=== PATIENT | male | born 1955 | race Caucasian/White ===

== ENCOUNTER 2023-07-06 14:39 | Outpatient (AMB) | payer MEDICARE, OTHER, SELFPAY ==
[2023-07-06 14:58] VITALS: BP 140/90; PULSE 57; O2SAT 98; BMI 27.9
--- NOTE | 2023-07-06 14:58 | HO.NEPHOV_ITS ---
Vital Signs 07/06/23 14:58 Height 5 ft 9 in Weight 189 lb 2 oz BMI 27.9 BP 140/90 H Blood Pressure Location Lt brachial Position Sitting Pulse 57 Pulse Source Pulse Oximeter Pulse Oximetry (%) 98 Oxygen Delivery Method Room Air Intake Visit Reasons: Hypertension/ Confirmed Ice Skating Instructor Required: No Accompanied by: Self / Same As Patient Allergies No Known Allergies Allergy (Verified 07/06/23 14:59) HPI Comments Details: I had the pleasure of seeing Hernán in follow-up of his labile hypertension. He continues to have fluctuant blood pressures without any symptoms. He does not have any palpitation, flushing, syncope, chest pain, shortness of breath, pedal edema, orthostatic symptoms. He has not taking any medications. He does not take any excessive nonsteroidal anti-inflammatories or excess sodium in the diet. He has no history of any drug use in the past. He denies any coronary artery disease, congestive heart failure, CVA, carotid stenosis, peripheral arterial disease or renal artery stenosis. He has no history of hypokalemia, hypercalcemia, uncontrolled thyroid disorders or documented sleep apnea. He maintains good hydration. [facility] Medical History (Updated 07/06/23 @ 15:35 by Sebas Lockhart MD) Hypertension Surgical History (Updated 07/06/23 @ 15:00 by Adilene Ugarte MA) History of hip replacement Family History (Updated 07/06/23 @ 15:01 by Adilene Ugarte MA) Brother Hypertension Social History (Updated 07/06/23 @ 15:01 by Adilene Ugarte MA) Alcohol intake: former Patient Tobacco Use Status: Never used Tobacco Physical Exam Vital Signs: Last Vital Signs Pulse 57 07/06/23 14:58 BP 140/90 H 07/06/23 14:58 Pulse Ox 98 07/06/23 14:58 Oxygen Delivery Method Room Air 07/06/23 14:58 BMI result Body Mass Index 27.9 Const General: comfortable and no acute distress Orientation/consciousness: patient oriented x3 HEENT Head: Yes normocephalic Mouth: Normal oral and palatal mucosa present Eyes EOM: EOMs intact bilaterally Neck Neck: Yes supple Resp Auscultation: clear to auscultation bilaterally Cardio Jugular venous distension: no JVD Rate: regular rate GI Palpation (GI): Soft to palpation Auscultation: normal bowel sounds General: Yes no CVA tenderness Back/Spine/Pelvis Back: no CVA tenderness Skin General skin exam: no rashes or lesions noted Neuro General: patient oriented x3 and moves all extremities Extrem General: Yes no pedal edema Results Reviewed Nephrology Results: No Data to Display Assessment & Plan Assessment & Plan (1) 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 He is asymptomatic and clinically well. I have ordered it ambulatory 24 hour blood pressure monitor for him. He has not on any antihypertensive medications. He maintains good hydration, avoids nonsteroidal anti-inflammatories and consumes less sodium in the diet. He has not a smoker. He has no vascular symptoms. His electrolytes and renal functions had been at baseline. I did not initiate him on any medications. We shall discuss the 24 hour ambulatory blood pressure monitor results at the next office visit and then decide whether he genuinely has any blood pressure disorder and needs medications. All questions answered. Follow-up appointment given. 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
== END 2023-07-06 15:41 | disposition home or self-care (01) ==
PROVIDERS: PCP Internal Medicine; Visit Provider Internal Medicine Nephrology
DX: R09.89 Other specified symptoms and signs involving the circulatory and respiratory systems (principal)
CPT/HCPCS: 99214

== ENCOUNTER → 2023-07-06 14:39 | Outpatient (BNVA) | payer MEDICARE, SELFPAY | PROVIDERS: PCP Internal Medicine; Visit Provider Internal Medicine Nephrology | DX: R09.89 Other specified symptoms and signs involving the circulatory and respiratory systems (principal) | CPT/HCPCS: 99212 ==

== ENCOUNTER → 2023-07-31 09:13 | Outpatient (BNVA) | payer MEDICARE, SELFPAY | PROVIDERS: PCP Internal Medicine; Visit Provider Internal Medicine Nephrology ==

== ENCOUNTER 2023-08-01 09:23 | Outpatient (AMB) | payer MEDICARE, OTHER, SELFPAY ==
[2023-08-01 09:30] VITALS: BP 138/98; PULSE 61; O2SAT 98; BMI 29.0
--- NOTE | 2023-08-01 09:30 | HO.NEPHOV_ITS ---
Vital Signs 08/01/23 09:30 Height 5 ft 9 in Weight 196 lb 2 oz BMI 29.0 BP 138/98 H Blood Pressure Location Lt brachial Position Sitting Pulse 61 Pulse Source Pulse Oximeter Pulse Oximetry (%) 98 Oxygen Delivery Method Room Air Intake Visit Reasons: 1 mon follow up/ Confirmed Clinical Pharmacy Technician Required: No Accompanied by: Self / Same As Patient Allergies No Known Allergies Allergy (Verified 08/01/23 09:32) HPI Comments Details: I had the pleasure of seeing Hernán in follow-up of his labile hypertension. He continues to have fluctuant blood pressures without any symptoms. He had a 24 hour BP monitor which showed some high readings but most of the readings were acceptable. He does not have any palpitation, flushing, syncope, chest pain, shortness of breath, pedal edema, orthostatic symptoms. He has not taking any medications. He does not take any excessive nonsteroidal anti-inflammatories or excess sodium in the diet. He has no history of any drug use in the past. He denies any coronary artery disease, congestive heart failure, CVA, carotid stenosis, peripheral arterial disease or renal artery stenosis. He has no history of hypokalemia, hypercalcemia, uncontrolled thyroid disorders or documented sleep apnea. He maintains good hydration [facility] Medical History (Updated 07/06/23 @ 15:35 by Sebas Lockhart MD) Hypertension Surgical History (Updated 07/06/23 @ 15:00 by Adilene Ugarte MA) History of hip replacement Family History (Updated 07/06/23 @ 15:01 by Adilene Ugarte MA) Brother Hypertension Social History (Updated 07/06/23 @ 15:01 by Adilene Ugarte MA) Alcohol intake: former Patient Tobacco Use Status: Never used Tobacco Physical Exam Const General: comfortable and no acute distress Orientation/consciousness: patient oriented x3 HEENT Head: Yes normocephalic Mouth: Normal oral and palatal mucosa present Eyes EOM: EOMs intact bilaterally Neck Neck: Yes supple Resp Auscultation: clear to auscultation bilaterally Cardio Jugular venous distension: no JVD Rate: regular rate GI Palpation (GI): Soft to palpation Auscultation: normal bowel sounds General: Yes no CVA tenderness Back/Spine/Pelvis Back: no CVA tenderness Skin General skin exam: no rashes or lesions noted Neuro General: patient oriented x3 and moves all extremities Extrem General: Yes no pedal edema Results Reviewed Nephrology Results: No Data to Display Assessment & Plan Assessment & Plan (1) 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 He is asymptomatic and clinically well. He had a 24 hour BP monitor which showed some high readings but most of the readings were acceptable. He has not on any antihypertensive medications. He maintains good hydration, avoids nonsteroidal anti-inflammatories and consumes less sodium in the diet. He has not been a smoker. He has no vascular symptoms. His daron ctrolytes and renal functions had been at baseline. I did not initiate him on any medications. We agreed to review in February again and then follow up to decide whether he needs medications. He is going to keep a log of BP at home. All questions answered. 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
== END 2023-08-01 09:50 | disposition home or self-care (01) ==
PROVIDERS: PCP Internal Medicine; Visit Provider Internal Medicine Nephrology
DX: R09.89 Other specified symptoms and signs involving the circulatory and respiratory systems (principal)
CPT/HCPCS: 93790; 99214

== ENCOUNTER → 2023-08-01 09:23 | Outpatient (BNVA) | payer MEDICARE, OTHER, SELFPAY | PROVIDERS: PCP Internal Medicine; Visit Provider Internal Medicine Nephrology | DX: R09.89 Other specified symptoms and signs involving the circulatory and respiratory systems (principal) | CPT/HCPCS: 99212 ==

== ENCOUNTER 2024-02-27 14:13 | Outpatient (AMB) | payer MEDICARE, SELFPAY ==
--- NOTE | 2024-02-27 14:38 | HO.NEPHOV ---
Vital Signs 02/27/24 14:39 Height 5 ft 9 in Weight 188 lb 6 oz BMI 27.8 BP 156/98 H Blood Pressure Location Lt brachial Position Sitting Pulse 66 Pulse Source Monitor Intake Visit Reasons: 7mon follow up Commercial Account Manager Required: No Accompanied by: Self / Same As Patient Allergies No Known Allergies Allergy (Verified 02/27/24 14:38) HPI Comments Details: I had the pleasure of seeing Hernán in follow-up of his labile hypertension. He continues to have fluctuant blood pressures without any symptoms. He had a 24 hour BP monitor in the past which showed some high readings but most of the readings were acceptable. He had left femoral hernua and had the surgery. He has lost some weight but has gained back. He does not have any palpitation, flushing, syncope, chest pain, shortness of breath, pedal edema, orthostatic symptoms. He has not taking any medications. He does not take any excessive nonsteroidal anti-inflammatories or excess sodium in the diet. He has no history of any drug use in the past. He denies any coronary artery disease, congestive heart failure, CVA, carotid stenosis, peripheral arterial disease or renal artery stenosis. He has no history of hypokalemia, hypercalcemia, uncontrolled thyroid disorders or documented sleep apnea. He maintains good hydration [facility] Medical History (Updated 02/27/24 @ 15:13 by Sebas Lockhart MD) Hypertension Surgical History History of hip replacement Family History Brother Hypertension Social History Alcohol intake: former Patient Tobacco Use Status: Never used Tobacco Review of Systems Const All systems reviewed & are unremarkable except as noted in HPI and below Physical Exam Vital Signs: Last Vital Signs Pulse 66 02/27/24 14:39 BP 156/98 H 02/27/24 14:39 BMI result Body Mass Index 27.8 Const General: comfortable and no acute distress Orientation/consciousness: patient oriented x3 HEENT Head: Yes normocephalic Mouth: Normal oral and palatal mucosa present Eyes EOM: EOMs intact bilaterally Neck Neck: Yes supple Resp Auscultation: clear to auscultation bilaterally Cardio Jugular venous distension: no JVD Rate: regular rate GI Palpation (GI): Soft to palpation Auscultation: normal bowel sounds General: Yes no CVA tenderness Back/Spine/Pelvis Back: no CVA tenderness Skin General skin exam: no rashes or lesions noted Neuro General: patient oriented x3 and moves all extremities Extrem General: Yes no pedal edema Results Reviewed Nephrology Results: No Data to Display Assessment & Plan Assessment & Plan (1) Hypertension: Code(s): I10 - Essential (primary) hypertension Category: Medical Qualifiers: Hypertension type: primary hypertension Qualified Code(s): I10 - Essential (primary) hypertension Plan Hernán has been having labile blood pressure especially in a clinical environment. He is asymptomatic and clinically well. He had a 24 hour BP monitor which showed some high readings but most of the readings were acceptable. He had lost weight with improvement in BP but when he gained back the weight, his BP started going up again. He has not on any antihypertensive medications. He maintains good hydration, avoids nonsteroidal anti-inflammatories and consumes less sodium in the diet. He has not been a smoker. He has no vascular symptoms. His electrolytes and renal functions had been at baseline. I did not initiate him on any medications. We agreed to review in June again and then follow up to decide whether he needs medications. He is going to keep a log of BP at home. All questions answered. Follow-up appointment given Coding Level of Care Code Est Pt Level 4 (86041) Diagnoses Primary hypertension I10 Hypertension type: primary hypertension
[2024-02-27 14:39] VITALS: BP 156/98; PULSE 66; BMI 27.8
== END 2024-02-27 15:27 | disposition home or self-care (01) ==
PROVIDERS: PCP Internal Medicine; Visit Provider Internal Medicine Nephrology
DX: I10 Essential (primary) hypertension (principal)
CPT/HCPCS: 99214

== ENCOUNTER → 2024-02-27 14:13 | Outpatient (BNVA) | payer MEDICARE, SELFPAY | PROVIDERS: PCP Internal Medicine; Visit Provider Internal Medicine Nephrology | DX: I10 Essential (primary) hypertension (principal) | CPT/HCPCS: 99212 ==

== ENCOUNTER 2024-09-03 10:16 | Outpatient (AMB) | payer MEDICARE, SELFPAY ==
[2024-09-03 10:44] VITALS: BP 128/80; PULSE 56; O2SAT 98; BMI 25.8
--- NOTE | 2024-09-03 10:44 | HO.NEPHOV ---
Vital Signs 09/03/24 10:44 Height 5 ft 9 in Weight 175 lb BMI 25.8 BP 128/80 Blood Pressure Location Lt brachial Position Sitting Pulse 56 Pulse Source Pulse Oximeter Pulse Oximetry (%) 98 Oxygen Delivery Method Room Air Intake Visit Reasons: 4mon follow up no labs-Conf Advanced Practice Nurse Psychotherapist Required: No Accompanied by: Self / Same As Patient Allergies No Known Allergies Allergy (Verified 09/03/24 10:47) HPI Comments Details: Hernán was seen in follow-up of his labile hypertension. He continues to have fluctuant blood pressures without any symptoms. He had a 24 hour BP monitor in the past which showed some high readings but most of the readings were acceptable. He had left femoral hernia and had the surgery. He has lost some weight but has gained back. He does not have any palpitation, flushing, syncope, chest pain, shortness of breath, pedal edema, orthostatic symptoms. He has not taking any medications. He does not take any excessive nonsteroidal anti-inflammatories or excess sodium in the diet. He has no history of any drug use in the past. He denies any coronary artery disease, congestive heart failure, CVA, carotid stenosis, peripheral arterial disease or renal artery stenosis. He has no history of hypokalemia, hypercalcemia, uncontrolled thyroid disorders or documented sleep apnea. He maintains good hydration [facility] Medical History (Updated 02/27/24 @ 15:13 by Sebas Lockhart MD) Hypertension Surgical History (Updated 09/03/24 @ 10:46 by MARCELINO Fletcher) History of hernia surgery (~02/2024) History of hip replacement Family History Brother Hypertension Social History Alcohol intake: former Patient Tobacco Use Status: Never used Tobacco Review of Systems Const All systems reviewed & are unremarkable except as noted in HPI and below Physical Exam Vital Signs: Last Vital Signs Pulse 56 09/03/24 10:44 BP 132/88 09/03/24 10:44 Pulse Ox 98 09/03/24 10:44 Oxygen Delivery Method Room Air 09/03/24 10:44 BMI result Body Mass Index 25.8 Const General: comfortable and no acute distress Orientation/consciousness: patient oriented x3 HEENT Head: Yes normocephalic Mouth: Normal oral and palatal mucosa present Eyes EOM: EOMs intact bilaterally Neck Neck: Yes supple Resp Auscultation: clear to auscultation bilaterally Cardio Jugular venous distension: no JVD Rate: regular rate GI Palpation (GI): Soft to palpation Auscultation: normal bowel sounds General: Yes no CVA tenderness Back/Spine/Pelvis Back: no CVA tenderness Skin General skin exam: no rashes or lesions noted Neuro General: patient oriented x3 and moves all extremities Extrem General: Yes no pedal edema Results Reviewed Nephrology Results: No Data to Display Assessment & Plan Assessment & Plan (1) 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 He is asymptomatic and clinically well. He had a 24 hour BP monitor which showed some high readings but most of the readings were acceptable. He had lost weight with improvement in BP. He has not on any antihypertensive medications. He maintains good hydration, avoids nonsteroidal anti-inflammatories and consumes less sodium in the diet. He has not been a smoker. He has no vascular symptoms. His electrolytes and renal functions had been at baseline. I did not initiate him on any medications. He is keeping a log of BP at home. All questions answered. 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
--- OUTSIDE RECORDS SUMMARY | 2024-09-03 11:46 | XMS_ITS | Encounter Summary ---
Author Organization [facility] Address [address] [facility] [address] [place] [address] Phone Care Team Providers Care Access Assoc Name Role Phone Neil Child MD Primary Care Provider + [phone] Encounter Details Date Type Department Care Team (Late st Contact Info) Description 01/20/2022 Documentation Only [facility] [address] [facility] [address] [place] [id number] Faiza Robles Social History Tobacco Use Types Packs/Day Years Used Date Smoking Tobacco: Never Smokeless Tobacco: Never Alcohol Use Standard Drinks/Week Comments Yes 0 (1 standard drink = 0.6 oz pur e alcohol) Sex and Gender Information Value Date Recorded Sex Assigned at Not on file Legal Sex Male 4:51 PM EST Gender Identity Not on file Sexual Orientation Not on file documented as of this encounter Plan of Treatment Not on file documented as of this encounter Visit Diagnoses Not on filedocumented in this encounter Care Teams Access Assoc Relationship Specialty Start Date End Date Neil Cihld MD [address] [place] [address] PCP - General 03/30/20 documented as of this encounter
== END 2024-09-03 11:05 | disposition home or self-care (01) ==
LOC: HO.HKAS 10:16
PROVIDERS: PCP Internal Medicine; Visit Provider Internal Medicine Nephrology
DX: R09.89 Other specified symptoms and signs involving the circulatory and respiratory systems (principal)
CPT/HCPCS: 99214

== ENCOUNTER → 2024-09-03 10:16 | Outpatient (BNVA) | payer MEDICARE, SELFPAY | PROVIDERS: PCP Internal Medicine; Visit Provider Internal Medicine Nephrology | DX: R09.89 Other specified symptoms and signs involving the circulatory and respiratory systems (principal) | CPT/HCPCS: 99212 ==

== ENCOUNTER 2025-02-28 10:02 | Outpatient (AMB) | payer MEDICARE, OTHER, SELFPAY ==
--- NOTE | 2025-02-28 10:03 | HO.NEPHOV_ITS ---
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 He continues to have fluctuant blood pressures without any symptoms.He does not have any palpitation, flushing, syncope, chest pain, shortness of breath, pedal edema, orthostatic symptoms. He has not taking any medications. He does not take any excessive nonsteroidal anti-inflammatories or excess sodium in the diet. He has no history of any drug use in the past. He denies any coronary artery disease, congestive heart failure, CVA, carotid stenosis, peripheral arterial disease or renal artery stenosis. He has no history of hypokalemia, hypercalcemia, uncontrolled thyroid disorders or documented sleep apnea. He maintains good hydration. His BP has been running high [facility] Medical History (Updated 02/27/24 @ 15:13 by Sebas Lockhart MD) Hypertension Surgical History History of hernia surgery (~02/2024) History of hip replacement Family History Brother Hypertension Social History Alcohol intake: former Patient Tobacco Use Status: Never used Tobacco Review of Systems Const All systems reviewed & are unremarkable except as noted in HPI and below Physical Exam Vital Signs: Last Vital Signs Pulse 66 02/28/25 10:04 BP 170/100 H 02/28/25 10:04 Pulse Ox 97 02/28/25 10:04 Oxygen Delivery Method Room Air 02/28/25 10:04 BMI result Body Mass Index 28.4 Const General: comfortable and no acute distress Orientation/consciousness: patient oriented x3 HEENT Head: Yes normocephalic Mouth: Normal oral and palatal mucosa present Eyes EOM: EOMs intact bilaterally Neck Neck: Yes supple Resp Auscultation: clear to auscultation bilaterally Cardio Jugular venous distension: no JVD Rate: regular rate GI Palpation (GI): Soft to palpation Auscultation: normal bowel sounds General: Yes no CVA tenderness Back/Spine/Pelvis Back: no CVA tenderness Skin General skin exam: no rashes or lesions noted Neuro General: patient oriented x3 and moves all extremities Extrem General: Yes no pedal edema Assessment & Plan Assessment & Plan (1) Hypertension: Code(s): I10 - Essential (primary) hypertension Category: Medical Qualifiers: Hypertension type: primary hypertension Qualified Code(s): I10 - Essential (primary) hypertension Plan Hernán has been having labile blood pressure for some time. I started him on losartan 25 mg daily. Side effects and interaction explained. He maintains good hydration, avoids nonsteroidal anti-inflammatories and consumes less sodium in the diet. He has not been a smoker. He has no vascular symptoms. His electrolytes and renal functions had been at baseline. Follow up labs ordered. All questions answered. Follow-up appointment given Orders: Orders Electrolytes 4 Weeks I10 - Essential (primary) hypertension Blood Urea Nitrogen 4 Weeks I10 - Essential (primary) hypertension Creatinine 4 Weeks I10 - Essential (primary) hypertension Medications: New losartan 25 mg PO DAILY 90 tabs 3RF Coding Level of Care Code Est Pt Level 4 (57173) Diagnoses Primary hypertension I10 Hypertension type: primary hypertension
[2025-02-28 10:04] VITALS: BP 170/100; PULSE 66; O2SAT 97; BMI 28.4
== END 2025-02-28 10:28 | disposition home or self-care (01) ==
PROVIDERS: PCP Internal Medicine; Visit Provider Internal Medicine Nephrology
DX: I10 Essential (primary) hypertension (principal)
CPT/HCPCS: 99214

== ENCOUNTER → 2025-02-28 10:02 | Outpatient (BNVA) | payer MEDICARE, OTHER, SELFPAY | PROVIDERS: PCP Internal Medicine; Visit Provider Internal Medicine Nephrology | DX: I10 Essential (primary) hypertension (principal); R09.89 Other specified symptoms and signs involving the circulatory and respiratory systems | CPT/HCPCS: 99212 ==